=== PATIENT | female | born 1985 | race African-American/Black ===

== ENCOUNTER 2019-09-16 17:57 | Emergency (ER) | payer SELFPAY ==
[2019-09-16 18:26] LABS: #Basophils 0.1 thou/uL (0.0-0.2); #Eosinphils 0.2 thou/uL (0.0-0.7); #Lymphocytes 3.1 thou/uL (1.20-3.40); #Monocytes 0.9 thou/uL (0.11-0.59); #Neutrophils 7.7 thou/uL (1.40-6.50); %Basophils 0.6 % (0.0-1.0); %Eosinophils 1.6 % (0.0-10.0); %Lymphocytes 26.3 % (21.0-51.0); %Monocytes 7.3 % (0.0-10.0); %Neutrophils 64.2 % (42.0-75.0); Hemoglobin 13.3 g/dL (12.0-16.0); Mean Corpuscular HGB CONC 34.9 g/dL (32.0-36.0); Mean Corpuscular Hemoglobin 32.7 pg (27.0-31.0); Mean Corpuscular Volume 93.6 fL (78.0-98.0); Mean Platelet Volume 8.5 fL (7.4-10.4); Platelet Count 321 thou/uL (130-400); RBC Distribution Width 12.2 % (11.5-14.5); Red Blood Cell (RBC) Count 4.07 mill/uL (4.20-5.40); White Blood Cell (WBC) Count 11.9 thou/uL (4.8-10.8)
[2019-09-16 18:44] LABS: Anion Gap 14 mmol/L (10-20); BUN (Urea Nitrogen) 12 mg/dL (7.0-18.7); Calc. Creatinine Clearance 0 mL/min (70-130); Carbon Dioxide 25 mmol/L (22-29); Chloride 103 mmol/L (98-107); Estimated GFR-MDRD 68; Glucose 103 mg/dL (70-105); Potassium 4.1 mmol/L (3.5-5.1); Sodium 138 mmol/L (136-145)
--- NOTE | 2019-09-16 19:29 | ULT ---
PELVIC ULTRASOUND: 09/16/19 Transabdominal and endovaginal ultrasound of pelvis performed. INDICATION: Molar . COMPARISON: No comparison studies. The uterus is enlarged and there is abnormal echogenicity in the endometrial cavity. There is a focal circumscribed cystic area which could represent a gestational sac; however, no fecal pole or yolk sa c identified. There are adjacent hypoechoic/anechoic areas which are seen. Both ovaries are identifie d. A right ovarian cyst measures 1.3 cm. Color Doppler and spectral analysis demonstrates flow to bot h ovaries. IMPRESSION: Enlarged endometrial stripe with increased echogenicity. There are cystic areas within the endometria l cavity which do not show evidence of fecal pole or yolk sac. Findings could represent a molar pregn michael as per history. POS: NICK
== END 2019-09-16 20:17 | disposition home or self-care (01) ==
LOC: ERS 17:57
DX: O20.0 Threatened abortion (principal); Z3A.12 12 weeks gestation of pregnancy
CPT/HCPCS: 36415; 76856; 80048; 84702; 85025; 86900; 86901